=== PATIENT | male | born 1995 | race African-American/Black ===

== ENCOUNTER 2019-09-18 21:38 | Emergency (ER) | payer SELFPAY ==
[2019-09-18 22:11] LABS: ABS Eosinophils 0.3 10^3/ul (0-0.6); ABS Lymphocytes 1.1 10^3/ul (1.0-4.8); ABS Monocytes 0.5 10^3/ul (0-0.8); ABS Neutrophils 5.6 10^3/ul (1.5-7.7); Eosinophil % 3.9 %; Hematocrit 43 % (42-52); Hemoglobin 14.3 g/dL (14.0-18.0); Lymphocyte % 14.7 %; Mean Corpuscular HGB Conc 33 g/dL (31-36); Mean Corpuscular Hemoglobin 31 pg (27-31); Mean Corpuscular Volume 94 fL (80-94); Mean Platelet Volume 8.6 fL (7.4-10.4); Platelet Count 180 10^3/uL (150-450); Red Blood Count 4.56 10^6 /uL (4.18-5.48); Red Cell Distribution Width 14 % (10-15); White Blood Count 7.5 10^3/uL (3.5-10.8)
[2019-09-18] MEDS ORDERED: Dexamethasone IV* 4 MG/ML 5 ML VIAL (20 MG) IVPB ONE (22:22)
[2019-09-18 22:23] LABS: Albumin 4.4 g/dL (3.2-5.2); Albumin/Globulin Ratio 1.9 (1-3); BUN/Creatinine Ratio 12.6 (8-20); EGFR African American 131.6 (>60); EGFR Non-African American 108.7 (>60); Globulin 2.3 g/dL (2-4); Magnesium 1.9 mg/dL (1.9-2.7); Potassium 3.9 mmol/L (3.5-5.0); Total Bilirubin 0.6 mg/dL (0.2-1.0); Total Protein 6.7 g/dL (6.4-8.9)
[2019-09-18 22:37] LABS: TSH (Thyroid Stimulating Horm) 0.43 mcIU/mL (0.34-5.60)
--- NOTE | 2019-09-18 22:51 | ED ---
Palpitations / Dysrhythmia - HPI Summary HPI Summary: Patient is a 23 y/o M presenting to [facility] via EMS with complaints of palpitations. Associated Sx include diaphoresis, SOB. He states that he had sudden onset of palpitations around 1 hour ago. Patient states that he called EMS 20-25 minutes ago and that the palpitations resolved as he called EMS. He claims Hx of panic attacks x3 with most recent having occurred a month ago. Patient notes that present Sx are similar to those that he experiences during his panic attacks, but notes that this present episode was shorter in duration. He states that he had been evaluated for these episodes in [facility] ED. Patient is unsure of the treatment he received during these ED visits, stating that he received a medication IV one time, IM another time, and was subsequently discharged both times. Patient also claims that he has been "annexed" from [facility] as "they didn't like me". He denies cocaine, crack and heroin usage. Patient reports that he has used spice and marijuana previously when he was younger. Patient endorses Hx of asthma. He states that he does not have a PCP. On human services assistant, nothing is noted to aggravate/alleviate Sx. Home medications and allergies are reviewed. - History of Current Complaint Chief Complaint: EDDysrhythmPalp Time Seen by Provider: 09/18/19 21:51 Hx Obtained From: Patient Onset/Duration: Sudden Onset, Lasting Minutes, Resolved Timing: Intermittent Episodes Lasting: Aggravating: Nothing Alleviating: Nothing Associated Signs & Symptoms: Shortness of Breath, Diaphoresis - Allergy/Home Medications Allergies/Adverse Reactions: Allergies Allergy/AdvReac Type Severity Reaction Status Date / Time soy Allergy Unknown Verified 09/18/19 21:48 Reaction Details PMH/Surg Hx/FS Hx/Imm Hx Sensory History: Denies: Hx Legally Blind, Hx Deafness Opthamlomology History: Denies: Hx Legally Blind EENT History: Denies: Hx Deafness Psychiatric History: Reports: Hx Panic Disorder Infectious Disease History: No Infectious Disease History: Denies: Traveled Outside the [place] in Last 30 Days - Family History Known Family History: Negative: Cardiac Disease - Social History Alcohol Use: Occasionally Substance Use Type: Reports: None Smoking Status (MU): Heavy Every Day Tobacco Smoker Review of Systems Positive: Skin Diaphoresis Positive: Palpitations Positive: Shortness Of Breath All Other Systems Reviewed And Are Negative: Yes Physical Exam - Summary Physical Exam Summary: Constitutional: Well-developed, Well-nourished, Alert. (-) Distressed Skin: Warm, Dry HENT: Normocephalic; Atraumatic Eyes: Conjunctiva normal Neck: Musculoskeletal ROM normal neck. (-) JVD, (-) Stridor, (-) Tracheal deviation Cardio: Tachycardic, Heart sounds normal; Intact distal pulses; The pedal pulses are 2+ and symmetric. Radial pulses are 2+ and symmetric. Pulmonary/Chest wall: Diffuse bilateral wheezes noted. Good air entry noted. (- ) Respiratory distress, (-) Rales Abd: Soft, (-) tenderness, (-) Distension, (-) Guarding, (-) Rebound Musculoskeletal: (-) Edema Neuro: Alert, Oriented x3 Psych: Mood and affect Normal Triage Information Reviewed: Yes Vital Signs On Initial Exam: Initial Vitals Temp Pulse Resp BP Pulse Ox 99.2 F 82 18 111/74 98 09/18/19 21:46 09/18/19 21:46 09/18/19 21:46 09/18/19 21:46 09/18/19 21:46 Vital Signs Reviewed: Yes Procedures - Sedation Patient Received Moderate/Deep Sedation with Procedure: No Diagnostics - Vital Signs Vital Signs Temp Pulse Resp BP Pulse Ox 09/18/19 21:46 99.2 F 82 18 111/74 98 - Laboratory Result Diagrams: 09/18/19 21:58 09/18/19 21:58 Lab Statement: Any lab studies that have been ordered have been reviewed, and results considered in the medical decision making process. - Radiology CXR Radiology Interpretation Completed By: ED Physician Summary of Radiographic Findings: CXR was NAD, pending official report. - EKG 2142 Cardiac Rate: NL - rate of 80 BPM EKG Rhythm: Sinus Rhythm Summary of EKG Findings: EKG showed NSR with rate of 80 BPM, J-point elevation with benign early repolarization. This EKG was reviewed and interpreted by Dr. Boucher. Re-Evaluation - Re-Evaluation First Eval Re-Evaluation Time: 22:55 Comment: [facility] was contacted for medical records. Patient is noted to have been to [facility] ED multiple times previously for substance, alcohol abuse, and palpitations. EKG from [facility] is pending. Second Eval Re-Evaluation Time: 23:33 Comment: EKG from [facility] was obtained. It appears that J-point elevation is present in this prior EKG. Course/Dx - Course Course Of Treatment: Patient is a 23 y/o M presenting to [facility] via EMS with complaints of palpitations. Associated Sx include diaphoresis, SOB. He states that he had sudden onset of palpitations around 1 hour ago. Patient states that he called EMS 20-25 minutes ago and that the palpitations resolved as he called EMS. He claims Hx of panic attacks x3 with most recent having occurred a month ago. Patient notes that present Sx are similar to those that he experiences during his panic attacks, but notes that this present episode was shorter in duration. Patient is tachycardic. Diffuse bilateral wheezes noted. Good air entry noted. EKG showed NSR with rate of 80 BPM, J-point elevation with benign early repolarization. EKG from [facility] was obtained. It appears that J-point elevation is present in this prior EKG. CXR was NAD. Bloodwork was negative. During ED course, patient received atrovent 0.25 mg INH Q20M MICKEY, 3 doses, Decardon 10 mg IV, and Levalbuterol 1.25 mg INH. Patient was discharged to home with prescription for prednisone and albuterol inhaler. He was given referral to [facility]. - Diagnoses Provider Diagnoses: Palpitations, Asthma exacerbation Discharge ED - Sign-Out/Discharge Documenting (check all that apply): Patient Departure - discharge - Discharge Plan Condition: Stable Disposition: HOME Prescriptions: Albuterol HFA INHALER* [Ventolin HFA Inhaler*] 1 - 2 puff INH Q4H PRN #1 mdi PRN Reason: Dyspnea predniSONE [Prednisone 20 MG TAB] 40 mg PO DAILY 4 Days #8 tablet Patient Education Materials: Heart Palpitations (ED), Asthma (ED), How to Stop Smoking (ED) Print Language: CITIZEN OF [place] Referrals: [facility] [Outside] - Billing Disposition and Condition Condition: STABLE Disposition: Home - Attestation Statements Document Initiated by Scribe: Yes Documenting Scribe: SEBASTIAN ROPER Provider For Whom Scribe is Documenting (Include Credential): BERNICE BOUCHER MD Scribe Attestation: ISEBASTIAN, scribed for BERNICE BOUCHER MD on 09/19/19 at 0727. Scribe Documentation Reviewed: Yes Provider Attestation: The documentation as recorded by the scribe, SEBASTIAN ROPER accurately reflects the service I personally performed and the decisions made by me, BERNICE BOUCHER MD Status of Scribe Document: Viewed
[2019-09-18] MEDS: Ipratropium 0.5MG/2.5ML NEB* 0.5 MG/2.5 ML NEB.SOLN INH SCH ×2 (22:54→23:44)
[2019-09-19] MEDS: Ipratropium 0.5MG/2.5ML NEB* 0.5 MG/2.5 ML NEB.SOLN INH SCH (00:03)
[2019-09-19 00:28] VITALS: BP 133/74
[2019-09-19] MEDS ORDERED: Levalbuterol 1.25MG/0.5ML NEB INH ONE (22:23)
== END 2019-09-19 00:16 | disposition home or self-care (01) ==
LOC: ED 21:38
DX: J45.901 Unspecified asthma with (acute) exacerbation (principal); F17.200 Nicotine dependence, unspecified, uncomplicated
CPT/HCPCS: 36415; 71045; 80053; 83605; 83735; 84443; 84484; 85025; 93005; 96374; 99283; A9270-GY; J1100

== ENCOUNTER 2019-10-10 18:24 | Emergency (ER) | payer SELFPAY ==
--- NOTE | 2019-10-10 19:06 | ED ---
Palpitations / Dysrhythmia - HPI Summary HPI Summary: This pt is a 24 y/o male presenting to [facility] via EMS for palpitations. Pt reports he was jogging when he began to have palpitations, characterized as irregular heart beat. He notes he currently feels better as his palpitations subsided about 40 minutes ago. Denies chest pain, SOB, dizziness. Per nurse's note, "pt presently confirms headache." Pt admits to smoking cigarettes and drinking alcohol. He reports he had a couple of beers today. Denies any drug use. PMHx: asthma. - History of Current Complaint Chief Complaint: EDChestPainROMI Time Seen by Provider: 10/10/19 18:53 Hx Obtained From: Patient Onset/Duration: Lasting Hours, Still Present Severity Initially: Moderate Severity Currently: Mild Character: Irregular Aggravating: Nothing Alleviating: Nothing Associated Signs & Symptoms: Negative - Allergy/Home Medications Allergies/Adverse Reactions: Allergies Allergy/AdvReac Type Severity Reaction Status Date / Time soy Allergy Unknown Verified 09/18/19 21:48 Reaction Details PMH/Surg Hx/FS Hx/Imm Hx Sensory History: Denies: Hx Legally Blind, Hx Deafness Opthamlomology History: Denies: Hx Legally Blind Psychiatric History: Reports: Hx Panic Disorder - Surgical History Surgical History: None Infectious Disease History: No Infectious Disease History: Denies: Traveled Outside the [place] in Last 30 Days - Family History Known Family History: Negative: Cardiac Disease - Social History Alcohol Use: Occasionally Substance Use Type: Reports: None Smoking Status (MU): Heavy Every Day Tobacco Smoker Review of Systems Negative: Fever Positive: Palpitations. Negative: Chest Pain Negative: Shortness Of Breath Neurological: Other - NEGATIVE: dizziness Positive: Headache All Other Systems Reviewed And Are Negative: Yes Physical Exam - Summary Physical Exam Summary: VITAL SIGNS: Reviewed. GENERAL: Patient is a well-developed and nourished male who is lying comfortable in the stretcher. Patient is not in any acute respiratory distress. HEAD AND FACE: No signs of trauma. No ecchymosis, hematomas or skull depressions. No sinus tenderness. EYES: PERRLA, EOMI x 2, No injected conjunctiva, no nystagmus. EARS: Hearing grossly intact. Ear canals and tympanic membranes are within normal limits. MOUTH: Oropharynx within normal limits. NECK: Supple, trachea is midline, no adenopathy, no JVD, no carotid bruit, no c- spine tenderness, neck with full ROM. CHEST: Symmetric, no tenderness at palpation LUNGS: Clear to auscultation bilaterally. No wheezing or crackles. CVS: Regular rate and rhythm, S1 and S2 present, no murmurs or gallops appreciated. ABDOMEN: Soft, non-tender. No signs of distention. No rebound no guarding, and no masses palpated. Bowel sounds are normal. EXTREMITIES: FROM in all major joints, no edema, no cyanosis or clubbing. NEURO: Alert and oriented x 3. No acute neurological deficits. Speech is normal and follows commands. He looks like he is under the influence of a substance. SKIN: Dry and warm Triage Information Reviewed: Yes Vital Signs On Initial Exam: Initial Vitals Temp Pulse Resp BP Pulse Ox 99.4 F 99 16 119/76 96 10/10/19 18:37 10/10/19 18:37 10/10/19 18:37 10/10/19 18:37 10/10/19 18:37 Vital Signs Reviewed: Yes Procedures - Sedation Patient Received Moderate/Deep Sedation with Procedure: No Diagnostics - Vital Signs Vital Signs Temp Pulse Resp BP Pulse Ox 10/10/19 18:37 99.4 F 99 16 119/76 96 - Laboratory Lab Statement: Any lab studies that have been ordered have been reviewed, and results considered in the medical decision making process. - Radiology chest XR Radiology Interpretation Completed By: Radiologist Summary of Radiographic Findings: pending official radiology report. - EKG 18:53 Cardiac Rate: NL - at 88 bpm EKG Rhythm: Sinus Rhythm Summary of EKG Findings: EKG at 18:53 shows normal sinus rhythm at a rate of [address] elevations. Re-Evaluation - Re-Evaluation First Eval Re-Evaluation Time: 19:48 Comment: Pt wants to sign out against medical advice. He does not want any blood work or further testings done. Pt signed the AMA form. Course/Dx - Course Assessment/Plan: Patient is a 24-year-old male who presents to the emergency department with a chief complaint of having palpitations. He denies any chest pain. In the ED course EKG shows a normal sinus rhythm without any significant ST elevation. At this time the patient declines any blood work or any workup. He reports that he wants to leave. Therefore he will sign AGAINST MEDICAL ADVICE. I extensively discussed with the patient the benefits and risks of leaving AMA. I also discussed the alternatives to leaving AMA, however, the patient still insists to leave the hospital AMA. The patient is clinically sober, free from distracting injury, appears to have intact insight and judgment and reason and in my opinion has the capacity to make decisions. Patient has full capacity and is cognitively intact. The patient presents with palpitations, I have explained that I am concerned with this symptom and may represent an arrhythmia. The patient verbalizes understanding of my concerns. The primary nurse and the charge nurse also strongly recommended that the patient should not leave AMA. Patient understands the risks of leaving AMA, which includes but is not restricted to . Patient signed the AMA form. Patient was also advised to return to ED if he changes his mind or if the symptoms worsen or other symptoms appear. Patient understands and agrees. Again , I discussed all the findings and test results with the patient. Patient was instructed to return to the emergency room immediately if any of the symptoms return or worsen. Plan of care was discussed with the patient and understands and agrees. All questions were answered at patient satisfaction. There were no further complaints or concerns. Patient signed AMA and he was discharged AMA. - Diagnoses Differential Diagnosis/HQI/PQRI: Positive: Hypokalemia, Paroxymal SVT, V-Tach Provider Diagnoses: Palpitations, Left against medical advice Discharge ED - Sign-Out/Discharge Documenting (check all that apply): Patient Departure - AMA - Discharge Plan Condition: Stable Disposition: AGAINST MEDICAL ADVICE Referrals: No Primary Care Phys,NOPCP [Primary Care Provider] - - Billing Disposition and Condition Condition: STABLE Disposition: Against Medical Advice - Attestation Statements Document Initiated by Scribe: Yes Documenting Scribe: Alena Roche Provider For Whom Scribe is Documenting (Include Credential): Donnie Venegas MD Scribe Attestation: Alena Cody, scribed for Donnie Venegas MD on 10/10/19 at 2124. Scribe Documentation Reviewed: Yes Provider Attestation: The documentation as recorded by the Alena pacheco accurately reflects the service I personally performed and the decisions made by me, Donnie Venegas MD Status of Scribe Document: Viewed
[2019-10-10 20:56] VITALS: BP 113/63
== END 2019-10-10 20:45 | disposition left against medical advice (07) ==
LOC: ED 18:24
DX: R00.2 Palpitations (principal); Z53.29 Procedure and treatment not carried out because of patient's decision for other reasons; F17.200 Nicotine dependence, unspecified, uncomplicated
CPT/HCPCS: 71046; 93005; 99282

== ENCOUNTER 2019-10-25 07:30 | Emergency (ER) | payer SELFPAY ==
[2019-10-25] MEDS ORDERED: Ondansetron INJ* 2 MG/ML VIAL IV ONE (07:45)
[2019-10-25] MEDS ORDERED: NS 0.9% 1000 ML** 1,000 ML IV ONE ×2 (07:45→10:11)
--- NOTE | 2019-10-25 07:47 | ED ---
GI/ HPI - HPI Summary HPI Summary: This pt is a 24 y/o male presenting to [facility] c/o nausea and vomiting today. Pt reports he has not been able to keep down any liquids today. He denies any abd pain, diarrhea, fever, chills, chest pain. Pt states he does not remember if he ate yesterday. When asked if patient ate the day before yesterday he responds " I don't know." PMHx: asthma. Pt admits to tobacco, alcohol, and recreational drug use. However he states he does not know or remember which recreational drugs. - History of Current Complaint Chief Complaint: EDNauseaVomitDiarrh Time Seen by Provider: 10/25/19 07:39 Stated Complaint: NAUSEA PER PT Hx Obtained From: Patient Onset/Duration: Started Hours Ago, Still Present Timing: Lasting Hours Current Severity: Mild Pain Intensity: 0 Associated Signs and Symptoms: Positive: Nausea, Vomiting. Negative: Diarrhea, Fever, Chills, Abdominal Pain, Chest Pain Aggravating Factor(s): Nothing Alleviating Factor(s): Nothing - Allergy/Home Medications Allergies/Adverse Reactions: Allergies Allergy/AdvReac Type Severity Reaction Status Date / Time soy Allergy Unknown Verified 10/25/19 07:43 Reaction Details PMH/Surg Hx/FS Hx/Imm Hx Endocrine/Hematology History: Denies: Hx Diabetes Cardiovascular History: Denies: Hx Hypertension Respiratory History: Reports: Hx Asthma Sensory History: Denies: Hx Legally Blind, Hx Deafness Opthamlomology History: Denies: Hx Legally Blind Psychiatric History: Reports: Hx Panic Disorder - Surgical History Surgical History: None Infectious Disease History: Yes Infectious Disease History: Denies: Traveled Outside the [place] in Last 30 Days - Family History Known Family History: Negative: Cardiac Disease - Social History Alcohol Use: Occasionally Substance Use Type: Reports: None Smoking Status (MU): Heavy Every Day Tobacco Smoker Review of Systems Negative: Fever, Chills Negative: Chest Pain Positive: Vomiting, Nausea. Negative: Abdominal Pain, Diarrhea All Other Systems Reviewed And Are Negative: Yes Physical Exam - Summary Physical Exam Summary: VITAL SIGNS: Reviewed. GENERAL: Patient is a well-developed and nourished male who is lying comfortable in the stretcher. Patient is not in any acute respiratory distress. HEAD AND FACE: Normocephalic and atraumatic. EYES: PERRLA, EOMI x 2, No injected conjunctiva. EARS: Hearing grossly intact. Ear canals and tympanic membranes are WNL. MOUTH: Oropharynx within normal limits. NECK: Supple, trachea is midline, no adenopathy, no JVD. CHEST: Symmetric, no tenderness at palpation. LUNGS: Clear to auscultation bilaterally. No wheezing or crackles. CVS: RRR, S1 and S2 present, no murmurs or gallops appreciated. ABDOMEN: Soft, non-tender. No signs of distention. Positive bowel sounds. No rebound, no guarding, and no masses palpated. No abdominal bruit or pulsations. EXTREMITIES: FROM in all major joints, no edema, no cyanosis or clubbing. NEURO: Alert and oriented x 3. No acute neurological deficits. Speech is normal. SKIN: Dry and warm. Triage Information Reviewed: Yes Vital Signs On Initial Exam: Initial Vitals Temp Pulse Resp BP Pulse Ox 97.8 F 91 18 113/74 98 10/25/19 07:31 10/25/19 07:31 10/25/19 07:31 10/25/19 07:31 10/25/19 07:31 Vital Signs Reviewed: Yes Procedures - Sedation Patient Received Moderate/Deep Sedation with Procedure: No Diagnostics - Vital Signs Vital Signs Temp Pulse Resp BP Pulse Ox 10/25/19 07:31 97.8 F 91 18 113/74 98 - Laboratory Result Diagrams: 10/25/19 07:58 10/25/19 07:58 Lab Statement: Any lab studies that have been ordered have been reviewed, and results considered in the medical decision making process. - Radiology Abdomen XR Radiology Interpretation Completed By: Radiologist Summary of Radiographic Findings: IMPRESSION: Nonobstructive bowel gas pattern. Dr. Venegas has reviewed this report. GIGU Course/Dx - Course Assessment/Plan: This pt is a 24 y/o male presenting to [facility] c/o nausea and vomiting today. Pt reports he has not been able to keep down any liquids today. He denies any abd pain, diarrhea, fever, chills, chest pain. Pt states he does not remember if he ate yesterday. PMHx: asthma. Pt admits to tobacco, alcohol, and recreational drug use. However, he states he does not know or remember which recreational drugs. Blood work without any significant abnormality except for chloride 98, anion gap is 16, glucose is 60, lactic acid is 2.4, total bilirubin is 1.10. Abdominal x-ray impression: Non-obstructive bowel gas pattern. In the ED course the patient was given IV fluids for hydration and Zofran for nausea and vomiting. After the patient was given Zofran the patient reports that he is feeling better. He is able to tolerate PO fluids without any nausea vomiting. Patient is also eating and drinking without any nausea vomiting. Since the patient is feeling better and blood work without any significant abnormality the patient will be discharged home with follow-up from his primary care physician. I discussed all the findings and test results with the patient. Patient was instructed to return to the emergency room immediately if any of the symptoms return or worsen. Plan of care was discussed with the patient and understands and agrees. All questions were answered at patient satisfaction. There were no further complaints or concerns. Lung exam before discharge: CTA B/L. Good air exchange. No wheezing or crackles heard. CVS: S1 and S2 present. No murmurs appreciated. Patient is alert and oriented x 3. Patient is hemodynamically stable. Patient will be discharged home with follow up from his PCP in the next 2-3 days. FS: 117 at discharge. - Diagnoses Provider Diagnoses: Nausea & vomiting Discharge ED - Sign-Out/Discharge Documenting (check all that apply): Patient Departure - Discharge home - Discharge Plan Condition: Stable Disposition: HOME Prescriptions: Ondansetron ODT TAB* [Zofran 4 MG Odt TAB*] 4 mg PO Q8H PRN #10 tab.odt PRN Reason: Nausea Patient Education Materials: Acute Nausea and Vomiting (ED) Referrals: [facility] [Outside] Additional Instructions: FOLLOW UP WITH YOUR PRIMARY CARE PROVIDER IN 2-3 DAYS. If you don't have one follow up with [facility]. RETURN TO THE EMERGENCY DEPARTMENT FOR ANY WORSENING OR NEW SYMPTOMS. - Billing Disposition and Condition Condition: STABLE Disposition: Home - Attestation Statements Document Initiated by Scribe: Yes Documenting Scribe: Alena Roche Provider For Whom Sosaibe is Documenting (Include Credential): Donnie Venegas MD Scribe Attestation: Alena Cody, scribed for Donnie Venegas MD on 10/27/19 at 0915. Scribe Documentation Reviewed: Yes Provider Attestation: The documentation as recorded by the scribe, Alena Roche accurately reflects the service I personally performed and the decisions made by me, Donnie Venegas MD Status of Scribe Document: Viewed
[2019-10-25 08:10] LABS: ABS Eosinophils 0.1 10^3/ul (0-0.6); ABS Monocytes 0.3 10^3/ul (0-0.8); ABS Neutrophils 8.1 10^3/ul (1.5-7.7); Eosinophil % 0.6 %; Hematocrit 49 % (42-52); Hemoglobin 16.9 g/dL (14.0-18.0); Lymphocyte % 10.3 %; Mean Corpuscular HGB Conc 34 g/dL (31-36); Mean Corpuscular Hemoglobin 32 pg (27-31); Mean Corpuscular Volume 92 fL (80-94); Platelet Count 242 10^3/uL (150-450); Red Blood Count 5.34 10^6 /uL (4.18-5.48); Red Cell Distribution Width 15 % (10-15); White Blood Count 9.4 10^3/uL (3.5-10.8)
[2019-10-25 08:41] LABS: ALT 21 U/L (7-52); Albumin/Globulin Ratio 1.5 (1-3); Alkaline Phosphatase 70 U/L (34-104); Amylase 64 U/L (29-103); BUN/Creatinine Ratio 20.2 (8-20); Blood Urea Nitrogen 18 mg/dL (6-24); C Reactive Protein 1.91 mg/L (<8.01); CO2 Carbon Dioxide 22 mmol/L (22-32); Chloride 98 mmol/L (101-111); EGFR African American 127.1 (>60); Globulin 3.3 g/dL (2-4); Glucose 60 mg/dL (70-100); Magnesium 2.1 mg/dL (1.9-2.7); Sodium 136 mmol/L (135-145); Total Protein 8.3 g/dL (6.4-8.9)
[2019-10-25 09:09] LABS: AST 34 U/L (13-39); Anion Gap 16 mmol/L (2-11); Potassium 4.1 mmol/L (3.5-5.0)
[2019-10-25 12:16] VITALS: BP 125/58
== END 2019-10-25 12:13 | disposition home or self-care (01) ==
LOC: ED 07:30
DX: R11.2 Nausea with vomiting, unspecified (principal); J45.909 Unspecified asthma, uncomplicated; F17.200 Nicotine dependence, unspecified, uncomplicated
CPT/HCPCS: 36415; 74019; 80053; 82150; 83605; 83690; 83735; 85025; 86140; 96361; 96374; 99282; J2405

== ENCOUNTER 2019-10-30 11:29 | Emergency (ER) | payer SELFPAY ==
--- NOTE | 2019-10-30 11:48 | ED ---
Altered Mental Status - HPI Summary HPI Summary: The patient is a 24 y/o M arriving by ambulance to [facility] with a chief complaint of AMS and decreased responsiveness this morning. He lives at the homeless assisted and was found to be standing with a blank stare and unresponsive, and he was thought to have been sleeping. Police and EMS were called, and they report that he was unable to speak at all while he was standing holding bread. Vitals were stable en route, and there was no reported seizure activity, although his eyes were observed to be glazed. In the ED, the patient has noted to have improved consciousness as he is able to ambulate and speak. He states that he was trying to make a sandwich, but then he became confused. He denies falling or hitting his head. He states he did not use any drugs or drink EtOH today, but he does drink beer and smoke cigarettes. He is not currently in any pain. Medications reviewed. Allergies noted. - History Of Current Complaint Stated Complaint: OVERDOSE PER EMS Hx Obtained From: Patient, EMS, Other: - police Onset/Duration: Resolved Severity Initially: Moderate Severity Currently: Mild Character: Confusion, Responsiveness Aggravating Factor(s): Unknown Alleviating Factor(s): Other - spontaneous resolution Associated Signs And Symptoms: Negative: Seizure - Allergies/Home Medications Allergies/Adverse Reactions: Allergies Allergy/AdvReac Type Severity Reaction Status Date / Time soy Allergy Unknown Verified 10/25/19 07:43 Reaction Details PMH/Surg Hx/FS Hx/Imm Hx Endocrine/Hematology History: Denies: Hx Diabetes Cardiovascular History: Denies: Hx Hypertension Respiratory History: Reports: Hx Asthma Sensory History: Denies: Hx Legally Blind, Hx Deafness Opthamlomology History: Denies: Hx Legally Blind Psychiatric History: Reports: Hx Panic Disorder - Surgical History Surgical History: None Surgery Procedure, Year, and Place: none - Family History Known Family History: Negative: Cardiac Disease - Social History Alcohol Use: Occasionally Substance Use Type: Reports: None Substance Use Comment - Amount & Last Used: unknown Hx Tobacco Use: Yes Smoking Status (MU): Heavy Every Day Tobacco Smoker Review of Systems Positive: Other - glazed (per EMS) Negative: Chest Pain Negative: Abdominal Pain Neurological: Other - confusion, AMS; Negative: head injury, seizure All Other Systems Reviewed And Are Negative: Yes Physical Exam - Summary Physical Exam Summary: Constitutional: Well-developed, Well-nourished, Alert. (-) Distressed Skin: Warm, Dry HENT: Normocephalic; Atraumatic Eyes: Conjunctiva normal Neck: Musculoskeletal ROM normal neck. (-) JVD, (-) Stridor, (-) Tracheal deviation Cardio: Rhythm regular, rate normal, Heart sounds normal; Intact distal pulses; Radial pulses are 2+ and symmetric. (-) Murmur Pulmonary/Chest wall: Effort normal. (-) Respiratory distress, (-) Wheezes, (-) Rales Abd: Soft, (-) tenderness, (-) Distension, (-) Guarding, (-) Rebound Musculoskeletal: (-) Edema Lymph: (-) Cervical adenopathy Neuro: Alert, Oriented to person and place but unable to state month or holiday Psych: Patient is giggling Triage Information Reviewed: Yes Vital Signs Reviewed: Yes Procedures - Sedation Patient Received Moderate/Deep Sedation with Procedure: No Diagnostics - Laboratory Result Diagrams: 10/30/19 12:08 10/30/19 12:10 Lab Statement: Any lab studies that have been ordered have been reviewed, and results considered in the medical decision making process. - EKG 1203 Cardiac Rate: NL - 63 BPM EKG Rhythm: Sinus Rhythm Summary of EKG Findings: An EKG at 1203 reveals normal sinus rhythm at 63 BPM. Benign early repolarization. Diffuse ST elevations with ST depression in aVR consistent with pericarditis. ED physician has reviewed and interpreted this EKG. Re-Evaluation - Re-Evaluation First Eval Re-Evaluation Time: 12:50 Change: Improved Comment: He is eating a sandwich. He denies any CP or SOB. Altered Mental Statu Course/Dx - Course Course Of Treatment: Patient was at the correction when he had an episode of altered mentation. Per police, patient was staring offand minimally responsive upon arrival by them. Pro time patient to the ED, he was back to his mental baseline. Patient denied any drug use or seizure history. Patient denied any trauma. Patient had screening labs performed which showed no evidence of intoxication. Patient is alert and oriented and was discharged back to the homeless assisted. - Diagnoses Provider Diagnoses: Schizophrenia, AMS (altered mental status) Discharge ED - Sign-Out/Discharge Documenting (check all that apply): Patient Departure - Patient will be discharged home. - Discharge Plan Condition: Improved Disposition: HOME Patient Education Materials: Schizophrenia (ED) Referrals: [facility] [Outside] - 3 Days Additional Instructions: Continue your [place] 3 shots. Please return to the emergency department if you have any thoughts of killing yourself or anyone else, or if you are having hallucinations. - Billing Disposition and Condition Condition: IMPROVED Disposition: Home - Attestation Statements Document Initiated by Mar[place]: Yes Documenting Scribe: Silvia Kidd Provider For Whom Carlos A is Documenting (Include Credential): Dr. Nilesh Peña MD Scribe Attestation: Silvia Cody scribed for Dr. Nilesh Peña MD on 10/30/19 at 1701. Scribe Documentation Reviewed: Yes Provider Attestation: The documentation as recorded by the Silvia pacheco accurately reflects the service I personally performed and the decisions made by me, Dr. Nilesh Peña MD Status of Scribe Document: Viewed
[2019-10-30 12:25] LABS: ABS Eosinophils 0.1 10^3/ul (0-0.6); ABS Lymphocytes 1.1 10^3/ul (1.0-4.8); ABS Monocytes 0.2 10^3/ul (0-0.8); ABS Neutrophils 2.5 10^3/ul (1.5-7.7); Eosinophil % 1.8 %; Hematocrit 44 % (42-52); Hemoglobin 14.8 g/dL (14.0-18.0); Lymphocyte % 28.1 %; Mean Corpuscular HGB Conc 34 g/dL (31-36); Mean Corpuscular Hemoglobin 31 pg (27-31); Mean Corpuscular Volume 93 fL (80-94); Mean Platelet Volume 8.4 fL (7.4-10.4); Nucleated Red Blood Cells % 0.1; Platelet Count 215 10^3/uL (150-450); Red Blood Count 4.74 10^6 /uL (4.18-5.48); Red Cell Distribution Width 15 % (10-15); White Blood Count 3.9 10^3/uL (3.5-10.8)
[2019-10-30 12:39] LABS: ALT 15 U/L (7-52); AST 18 U/L (13-39); Albumin 4.5 g/dL (3.2-5.2); Albumin/Globulin Ratio 1.7 (1-3); Alkaline Phosphatase 64 U/L (34-104); Anion Gap 4 mmol/L (2-11); BUN/Creatinine Ratio 15.3 (8-20); Blood Urea Nitrogen 11 mg/dL (6-24); CO2 Carbon Dioxide 29 mmol/L (22-32); Chloride 105 mmol/L (101-111); EGFR African American 162.3 (>60); EGFR Non-African American 134.1 (>60); Globulin 2.7 g/dL (2-4); Glucose 77 mg/dL (70-100); Potassium 4.5 mmol/L (3.5-5.0); Sodium 138 mmol/L (135-145); Total Protein 7.2 g/dL (6.4-8.9)
[2019-10-30 13:12] LABS: Alcohol < 10 mg/dL (<10)
[2019-10-30 13:38] LABS: Urine Benzodiazepine Screen None Detected (None Detect); Urine Opiates Screen None Detected (None Detect)
[2019-10-30 15:16] VITALS: BP 112/80
== END 2019-10-30 14:10 | disposition home or self-care (01) ==
LOC: ED 11:29
DX: F20.9 Schizophrenia, unspecified (principal); J45.909 Unspecified asthma, uncomplicated; F17.200 Nicotine dependence, unspecified, uncomplicated
CPT/HCPCS: 36415; 80053; 80307; 80320; 84484; 85025; 93005; 99282; G0480

== ENCOUNTER 2020-02-18 04:21 | Emergency (ER) | payer OTHER ==
[2020-02-18] MEDS ORDERED: Albuterol HFA INHALER* 8 gm MDI INH ONE (04:25)
--- NOTE | 2020-02-18 04:27 | ED ---
Respiratory - HPI Summary HPI Summary: 24 year old M presenting to [facility] via EMS with a chief complaint of shortness of breath since waking up. Patient reports a cough and some throat swelling. The patient rates the pain 0/10 in severity. Symptoms aggravated by nothing. Symptoms alleviated by a breathing treatment given by EMS. Patient denies any fever. The patient has a history of asthma. He admits to an active history of smoking. Medication list reviewed. Allergy list reviewed. - History of Current Complaint Stated Complaint: SOB PER EMS Hx Obtained From: Patient Onset/Duration: Sudden Onset Current Severity: None Pain Intensity: 0 Aggravating Factor(s): Nothing Alleviating Factor(s): Dose Of Medications Associated Signs and Symptoms: Negative - Fever - Allergy/Home Medications Allergies/Adverse Reactions: Allergies Allergy/AdvReac Type Severity Reaction Status Date / Time soy Allergy Unknown Verified 10/25/19 07:43 Reaction Details Home Medications: Home Medications NK [No Home Medications Reported] 02/18/20 [History Confirmed 02/18/20] PMH/Surg Hx/FS Hx/Imm Hx Endocrine/Hematology History: Denies: Hx Diabetes Cardiovascular History: Denies: Hx Hypertension Respiratory History: Reports: Hx Asthma Sensory History: Denies: Hx Legally Blind, Hx Deafness Opthamlomology History: Denies: Hx Legally Blind Psychiatric History: Reports: Hx Panic Disorder - Surgical History Surgical History: None Surgery Procedure, Year, and Place: none - Family History Known Family History: Negative: Cardiac Disease - Social History Alcohol Use: Occasionally Hx Substance Use: No Substance Use Type: Reports: None Substance Use Comment - Amount & Last Used: unknown Hx Tobacco Use: Yes Smoking Status (MU): Heavy Every Day Tobacco Smoker Review of Systems Negative: Fever Positive: Other - Throat swelling Positive: Shortness Of Breath, Cough All Other Systems Reviewed And Are Negative: Yes Physical Exam - Summary Physical Exam Summary: Appearance: Well-appearing, Well-nourished, lying in bed comfortably Skin: Warm, dry, no obvious rash Eyes: sclera anicteric, no conjunctival pallor HENT: mucous membranes moist, pharynx appears normal Neck: Supple, nontender Respiratory: Clear to auscultation, no signs of respiratory distress, no wheezing. Cardiovascular: Normal S1, S2. No murmurs. Normal distal pulses in tibial and radial bilaterally. Abdomen: Soft, nontender, normal active bowel sounds present Musculoskeletal: Normal, Strength/ROM Intact Neurological: A&Ox3, awake and alert, affect is blunted and I suspect he may be under the influence, although mentation is normal his responses are delayed somewhat and he has trouble following responding to anything more than simple questions, speech is otherwise fluent and appropriate Psychiatric: Does not appear anxious or depressed Triage Information Reviewed: Yes Vital Signs Reviewed: Yes Procedures - Sedation Patient Received Moderate/Deep Sedation with Procedure: No Disposition - Course Course Of Treatment: young man with h/o asthma and smoking presents with abrupt SOB and wheezing on scene per EMS, responsive to beta agonist en route and currently asymptomatic. He denies fever or obvious exposure to covid but requesting testing. Clinical suspicion of covid here is quite low. Anticipate discharge on short course of prednisone with albuterol MDI. - Diagnoses Provider Diagnoses: Asthma exacerbation Discharge ED - Sign-Out/Discharge Documenting (check all that apply): Patient Departure - Discharge Plan Condition: Good Disposition: HOME Patient Education Materials: Asthma (ED) Forms: COVID-19 Tested & Isolation Referrals: [facility] [Outside] - If Needed Additional Instructions: Use the inhaler 2 puffs every 4 hrs as needed for wheezing and shortness of breath. - Billing Disposition and Condition Condition: GOOD Disposition: Home - Attestation Statements Document Initiated by Scribe: Yes Documenting Scribe: Claudia Waller Provider For Whom Carlos A is Documenting (Include Credential): Ethan Byrd MD Scribe Attestation: Claudia Cody, scribed for Ethan Byrd MD on 02/23/20 at 0046. Scribe Documentation Reviewed: Yes Provider Attestation: The documentation as recorded by the Claudia pacheco accurately reflects the service I personally performed and the decisions made by me, Ethan Byrd MD Status of Scribe Document: Viewed
[2020-02-18 04:31] VITALS: BP 136/85
== END 2020-02-18 05:31 | disposition home or self-care (01) ==
LOC: ED 04:21
DX: J45.901 Unspecified asthma with (acute) exacerbation (principal); R06.02 Shortness of breath; F17.210 Nicotine dependence, cigarettes, uncomplicated; R05 Cough; Z20.828 Contact with and (suspected) exposure to other viral communicable diseases
CPT/HCPCS: 87635; 99281; A9270-GY; J7512

== ENCOUNTER 2022-11-08 21:21 | Inpatient (IN) ==
[2022-11-09 00:05] LABS: ABS Eosinophils 0.1 10^3/ul (0-0.6); ABS Lymphocytes 1.8 10^3/ul (1.0-4.8); ABS Monocytes 0.6 10^3/ul (0-0.8); ABS Neutrophils 5.8 10^3/ul (1.5-7.7); Eosinophil % 1.2 %; Hematocrit 40 % (42-52); Hemoglobin 13.8 g/dL (14.0-18.0); Lymphocyte % 21.7 %; Mean Corpuscular HGB Conc 34 g/dL (31-36); Mean Corpuscular Hemoglobin 30 pg (27-31); Mean Corpuscular Volume 89 fL (80-94); Mean Platelet Volume 7.7 fL (7.4-10.4); Platelet Count 275 10^3/uL (150-450); Red Blood Count 4.55 10^6 /uL (4.18-5.48); Red Cell Distribution Width 15 % (10-15); White Blood Count 8.3 10^3/uL (3.5-10.8)
[2022-11-09 00:45] LABS: ALT 15 U/L (7-52); AST 14 U/L (13-39); Acetaminophen < 15 mcg/mL; Albumin/Globulin Ratio 1.9 (1-3); Alcohol, S < 13 mg/dL (<13); Alkaline Phosphatase 67 U/L (35-149); Anion Gap 4 mmol/L (2-11); Blood Urea Nitrogen 17 mg/dL (6-24); CO2 Carbon Dioxide 29 mmol/L (22-32); Calcium 8.8 mg/dL (8.6-10.3); Chloride 103 mmol/L (101-111); Globulin 2.1 g/dL (2-4); Glucose 105 mg/dL (70-100); Potassium 4.3 mmol/L (3.5-5.0); Salicylate < 2.50 mg/dL (<30); Sodium 136 mmol/L (135-145); Total Protein 6.1 g/dL (6.4-8.9); eGFR CKD-EPI 98.6 (>60)
[2022-11-09 00:59] LABS: TSH Ultra Thyroid Stim Horm 0.57 mcIU/mL (0.34-5.60)
[2022-11-09] MEDS ORDERED: Nicotine GUM 4MG FRUIT FLAVOR PO PRN (01:00)
[2022-11-09 01:02] VITALS: BP 120/77
[2022-11-09] MEDS ORDERED: Nicotine PATCH 21 MG/24 HR PATCH TRANSDERM SCH (09:00)
== END 2022-11-09 14:10 | disposition home or self-care (01) | DRG 774 ==
LOC: ED 21:21 → EDHOLD 23:49 → BSU 11-09 01:13
PROVIDERS: ADMIT Psychiatry & Neurology Psychiatry; ATTEND Psychiatry & Neurology Psychiatry

== ENCOUNTER 2023-05-18 01:49 | Inpatient (IN) ==
[2023-05-18 04:31] LABS: ABS Eosinophils 0.1 10^3/uL (0.0-0.5); ABS Lymphocytes 2.2 10^3/uL (1.0-4.8); ABS Monocytes 0.4 10^3/uL (0.0-1.1); Eosinophil % 2.4 %; Hematocrit 37.6 % (38-53); Hemoglobin 13.1 g/dL (13.2-16.3); Lymphocyte % 38.7 %; Mean Corpuscular Hemoglobin 31.1 pg (27-33); Mean Corpuscular Hgb Conc 34.7 g/dL (31-36); Mean Corpuscular Volume 89.7 fL (80-97); Mean Platelet Volume 8.1 fL (7.5-11.2); Nucleated Red Blood Cells % 0.1 /100 WBC (0.0-0.4); Platelet Count 244 10^3/uL (150-450); Red Blood Count 4.19 10^6/uL (4.06-5.63); Red Cell Distribution Width 14.5 % (12-17); White Blood Count 5.8 10^3/uL (3.6-10.2)
[2023-05-18 04:46] LABS: ALT 7 U/L (7-52); AST 10 U/L (13-39); Albumin 4.2 g/dL (3.2-5.2); Albumin/Globulin Ratio 1.9 (1-3); Alkaline Phosphatase 57 U/L (35-149); Anion Gap 9 mmol/L (2-16); Blood Urea Nitrogen 12 mg/dL (6-24); CO2 Carbon Dioxide 25 mmol/L (22-32); Calcium 8.7 mg/dL (8.6-10.3); Chloride 101 mmol/L (101-111); Creatinine, Serum 0.89 mg/dL (0.67-1.17); Globulin 2.2 g/dL (2-4); Glucose 114 mg/dL (70-100); Potassium 3.5 mmol/L (3.5-5.0); Sodium 135 mmol/L (135-145); Total Protein 6.4 g/dL (6.4-8.9); eGFR CKD-EPI 120.5 (>60)
[2023-05-18 05:09] LABS: Acetaminophen < 15 mcg/mL; Alcohol, S < 13 mg/dL (<13); Salicylate < 2.50 mg/dL (<30)
[2023-05-18 05:14] LABS: Urine Appearance Clear; Urine Bilirubin Negative (Negative); Urine Blood Negative (Negative); Urine Color Yellow; Urine Glucose Negative (Negative); Urine Ketones Negative (Negative); Urine Nitrite Negative (Negative); Urine Protein Negative (Negative); Urine Specific Gravity 1.012 (1.002-1.030); Urine Urobilinogen Negative (Negative)
[2023-05-18 05:24] LABS: TSH Ultra Thyroid Stim Horm 1.19 mcIU/mL (0.34-5.60)
[2023-05-18 05:27] LABS: Urine Benzodiazepine Screen None Detected (None Detect); Urine Cannabinoids Screen Presumptive Positive (None Detect); Urine Opiates Screen None Detected (None Detect)
[2023-05-18] MEDS ORDERED: Al Hydrox/Mg Hydrox/Simet LIQ 30 ML UDC PO PRN (05:32)
[2023-05-18] MEDS ORDERED: Nicotine GUM 2MG FRUIT FLAVOR PO PRN (06:00)
[2023-05-18 08:39] VITALS: BP 98/57
[2023-05-18] MEDS: Nicotine PATCH 21 MG/24 HR PATCH TRANSDERM SCH (11:50)
[2023-05-18] MEDS: Vitamin THERAPEUTIC TAB PO SCH (11:50)
[2023-05-19] MEDS: Vitamin THERAPEUTIC TAB PO SCH (10:44)
[2023-05-19] MEDS: Nicotine PATCH 21 MG/24 HR PATCH TRANSDERM SCH (10:44)
== END 2023-05-19 12:21 | disposition home or self-care (01) | DRG 774 ==
LOC: ED 01:49 → EDHOLD 04:35 → BSU 08:23
PROVIDERS: ADMIT Psychiatry & Neurology Psychiatry; ATTEND Psychiatry & Neurology Psychiatry